=== PATIENT | male | born 1965 | race Caucasian/White ===

== ENCOUNTER → 2021-08-06 | Outpatient (CLI) | payer BC | LOC: EMI 15:40 | DX: M50.21 Other cervical disc displacement, high cervical region (principal); M47.812 Spondylosis without myelopathy or radiculopathy, cervical region; M48.02 Spinal stenosis, cervical region; M25.78 Osteophyte, vertebrae | CPT/HCPCS: 72141 ==

== ENCOUNTER → 2021-11-26 | Outpatient (CLI) | payer BC | LOC: EMI 10:54 | DX: G50.0 Trigeminal neuralgia (principal) | CPT/HCPCS: 70551 ==